=== PATIENT | male | born 1970 ===

== ENCOUNTER 2017-06-20 11:30 | Emergency (ER) | payer OTHER ==
[2017-06-20 11:59] VITALS: RESP 18; TEMP 98; BMI 30.1
[2017-06-20] MEDS ORDERED: Albuterol-Ipratrop 3 mg / 0.5 (3 ml) UD IH STA (12:03)
--- NOTE | 2017-06-20 12:10 | ED PDOC ---
Arrival/HPI - General Chief Complaint: Dizziness/Lightheaded Time Seen by Provider: 06/20/17 11:35 Historian: Patient - History of Present Illness Narrative History of Present Illness (Text): 06/20/17 11:40 El Perry Jr is a 46 year old male who presents to the emergency department complaining of dizziness today that caused him to fall and lose consciousness prior to arrival. Patient states that had a work related injury on 01/21/17 and has had intermittent dizziness since then. Today, patient states that he stood up, had a dizzy episode, and fell back. Thus, hitting his head and losing consciousness. Patient denies any nausea, vomiting, chest pain, palpitations, weakness, or any other complaints at this time. Time/Duration: Prior to Arrival Symptom Onset: Sudden Symptom Course: Improving Activities at Onset: Light Context: Home Associated Symptoms (Text): 06/20/17 12:32 Work-related injury last January. Patient has had intermittent dizziness since then. He has had a complete workup. He reports that he had an episode of dizziness this morning and fell striking his occiput with a loss of consciousness. No weakness. No numbness tingling or paresthesias. No nausea or vomiting. No neck pain. No chest pain palpitations or dyspnea. No other injury or trauma. Past Medical History - Provider Review Nursing Documentation Reviewed: Yes Family/Social History - Physician Review Nursing Documentation Reviewed: Yes Family/Social History: No Known Family HX Smoking Status: Never Smoked Hx Alcohol Use: Yes Frequency of alcohol use: Socially Hx Substance Use: No Allergies/Home Meds Allergies/Adverse Reactions: Allergies No Known Allergies Allergy (Verified 06/20/17 11:59) Home Medications: Home Meds Medication Instructions Recorded Confirmed Duloxetine HCl [Duloxetine] 20 mg PO BID 06/20/17 06/20/17 Hydrocodone/Acetaminophen 1 each PO Q6 PRN 06/20/17 06/20/17 [Hydrocodone-Acetamin 5-300 mg] Review of Systems - Physician Review All systems were reviewed & negative as marked: Yes - Review of Systems Constitutional: absent: Fatigue, Fevers, Night Sweats Eyes: absent: Vision Changes ENT: absent: Hearing Changes Respiratory: absent: SOB, Cough Cardiovascular: Syncope. absent: Chest Pain, Palpitations, Edema Gastrointestinal: absent: Abdominal Pain, Nausea, Vomiting Genitourinary Male: absent: Dysuria Musculoskeletal: absent: Arthralgias Skin: Other (Abrasion to head) Neurological: Headache, Dizziness. absent: Focal Weakness, Gait Changes, Speech Changes, Facial Droop, Disequilibrium, Seizure Endocrine: absent: Diaphoresis Hemo/Lymphatic: absent: Adenopathy Psychiatric: absent: Anxiety, Depression Physical Exam Vital Signs Reviewed: Yes Vital Signs Temp Pulse Resp BP Pulse Ox 06/20/17 11:58 98 F 70 18 120/72 95 Temperature: Afebrile Blood Pressure: Normal Pulse: Regular Respiratory Rate: Normal Appearance: Positive for: Well-Appearing, Non-Toxic, Comfortable Pain Distress: None Mental Status: Positive for: Alert and Oriented X 3 - Systems Exam Head: Present: Normocephalic, Abrasion (to occiput left sided). No: Tenderness , Contusion, Swelling, Ecchymosis, Laceration Pupils: Present: PERRL Extroacular Muscles: Present: EOMI Conjunctiva: Present: Normal Ears: Present: NORMAL TM, Normal Canal. No: Erythema Mouth: Present: Moist Mucous Membranes Pharnyx: No: ERYTHEMA, EXUDATE, TONSILS ENLARGED Neck: Present: Normal Range of Motion. No: Meningeal Signs, MIDLINE TENDERNESS , Paraspinal Tenderness Respiratory/Chest: Present: Clear to Auscultation. No: Respiratory Distress, Accessory Muscle Use Cardiovascular: Present: Regular Rate and Rhythm, Normal S1, S2. No: Murmurs Abdomen: No: Tenderness, Distention, Peritoneal Signs Back: Present: Normal Inspection Upper Extremity: Present: Normal Inspection. No: Cyanosis, Edema Lower Extremity: Present: Normal Inspection. No: Edema Neurological: Present: GCS=15, CN II-XII Intact, Speech Normal, Motor Func Grossly Intact, Normal Sensory Function, Normal Cerebellar Funct, Norm Deep Tendon Reflexes, Gait Normal, Memory Normal Skin: Present: Warm, Dry, Normal Color, Abrasion (As above). No: Rashes Psychiatric: Present: Alert, Oriented x 3, Normal Insight, Normal Concentration Medical Decision Making ED Course and Treatment: 06/20/17 11:35 Impression: 46 year old male complaining of dizziness today that caused him to fall and lose consciousness prior to arrival. Plan: -- Head CT w/ contrast -- EKG -- Chest X-ray -- Labs -- Boostrix Vaccine and Duoneb -- Reassess and disposition Progress Notes: 06/20/17 12:34 EKG shows normal sinus rhythm rate approximately [address] or T-wave changes. 06/20/17 13:08 The wrong orders were put into the computer for this patient. Patient only needs a CT scan of the head and tetanus immunization. Blood work is not indicated at this time. - Lab Interpretations I have reviewed the lab results: Yes - RAD Interpretation Radiology Orders: 06/20/17 12:03 CHEST PORTABLE [RAD] Stat 06/20/17 12:14 HEAD W/O CONTRAST [CT] Stat CT scan of the head as read by the radiologist shows no acute findings. Dye Operator: Radiologist - Medication Orders Current Medication Orders: Discontinued Medications Albuterol/Ipratropium (Duoneb 3 Mg/0.5 Mg (3 Ml) Ud) 3 ml IH ONCE STA Stop: 06/20/17 12:04 Tetanus/Reduced Diphtheria/Acell Pertussis (Boostrix Vaccine Inj) 0.5 ml IM .ONCE ONE Stop: 06/20/17 12:15 - Scribe Statement The provider has reviewed the documentation as recorded by the Kendraibmonica Cunningham Provider Scribe Attestation: All medical record entries made by the Scribe were at my direction and personally dictated by me. I have reviewed the chart and agree that the record accurately reflects my personal performance of the history, physical exam, medical decision making, and the department course for this patient. I have also personally directed, reviewed, and agree with the discharge instructions and disposition. Disposition/Present on Arrival - Present on Arrival Any Indicators Present on Arrival: No History of DVT/PE: No History of Uncontrolled Diabetes: No Urinary Catheter: No History of Decub. Ulcer: No - Disposition Have Diagnosis and Disposition been Completed?: Yes Diagnosis: Head contusion, Abrasion head, Dizziness Disposition: HOME/ ROUTINE Disposition Time: 13:49 Patient Plan: Discharge Condition: GOOD Additional Instructions: Symptomatic treatment. Tylenol or Advil as directed on bottle as needed. Follow- up with PMD. Follow up in ER as needed. Referrals: PCP,NO [Primary Care Provider] - Follow up with primary Forms: marinanow (Romanian)
[2017-06-20] MEDS ORDERED: TDAP Vaccine 0.5 mL Syr IM ONE (12:14)
--- NOTE | 2017-06-20 13:17 | RAD ---
HISTORY: cough COMPARISON: No prior. FINDINGS: LUNGS: No active pulmonary disease. PLEURA: No significant pleural effusion identified, no pneumothorax apparent. CARDIOVASCULAR: Normal. OSSEOUS STRUCTURES: No significant abnormalities. VISUALIZED UPPER ABDOMEN: Normal. OTHER FINDINGS: None. IMPRESSION: No active disease.
--- NOTE | 2017-06-20 13:45 | CT ---
PROCEDURE: CT HEAD WITHOUT CONTRAST. HISTORY: dizzy/trauma COMPARISON: None available. TECHNIQUE: Axial computed tomography images were obtained through the head/brain without intravenous contrast. Radiation dose: Total exam DLP = 906.34 mGy-cm. This CT exam was performed using one or more of the following dose reduction techniques: Automated exposure control, adjustment of the mA and/or kV according to patient size, and/or use of iterative reconstruction technique. FINDINGS: HEMORRHAGE: No intracranial hemorrhage. BRAIN: Yao-white matter differentiation is preserved. There is no mass, mass effect or abnormal extra-axial fluid collection. There is no territorial infarction. VENTRICLES: The ventricles are normal in size, shape and configuration. CALVARIUM: There is no calvarial fracture or extracranial soft tissue swelling. PARANASAL SINUSES: There is a small retention cyst/ polyp in the left maxillary sinus. The remaining included paranasal sinuses are predominantly clear. MASTOID AIR CELLS: Predominantly clear. OTHER FINDINGS: There is an old fracture deformity in the right lamina papyracea. IMPRESSION: No acute intracranial abnormality.
[2017-06-20 15:48] VITALS: BP 123/82; PULSE 76; O2SAT 98
--- NOTE | 2017-06-20 19:24 | CARD ---
APPROVED REPORT EKG Measurement Heart [id number] <Conclusion> Normal sinus rhythm Normal ECG
== END 2017-06-20 14:15 | disposition home or self-care (01) ==
LOC: ED 11:30
DX: S00.91XA Abrasion of unspecified part of head, initial encounter (principal); S00.93XA Contusion of unspecified part of head, initial encounter; W19.XXXA Unspecified fall, initial encounter; R42 Dizziness and giddiness; Z23 Encounter for immunization